=== PATIENT | male | born 1990 | race Caucasian/White ===

== ENCOUNTER → 2018-02-18 10:08 | Outpatient (CLI) | payer SELFPAY | PROVIDERS: Family Provider Family Medicine; PCP Family Medicine; Visit Provider Family Medicine | DX: L02.214 Cutaneous abscess of groin (principal) | CPT/HCPCS: 87070; 87077; 87186; 87205 ==

== ENCOUNTER → 2018-05-27 14:57 | Outpatient (CLI) | payer BC, SELFPAY ==
[2018-05-27 17:00] LABS: Chlamydia Trachomatis by PCR Negative (Negative); Neisserai gonorrhoeae by PCR Negative (Negative); Probe Check PASS; Sample Adequacy Control PASS; Specimen Processing Control PASS
== END ==
PROVIDERS: Family Provider Family Medicine; PCP Family Medicine; Referring Provider Family Medicine; Visit Provider Family Medicine
DX: R35.0 Frequency of micturition (principal)
CPT/HCPCS: 87086; 87088; 87491; 87591

== ENCOUNTER → 2018-11-12 | Outpatient (CLI) | payer SELFPAY ==
[2017-02-03 21:41] VITALS: BMI 40.4
[2018-11-12 12:33] LABS: Hemoglobin A1c 8.9 % (4.2-6.3)
[2018-11-12 12:59] LABS: ALB/GLOB Ratio 1.2 RATIO (0.9-2.4); AST(SGOT) 23 U/L (15-37); Alanine Aminotransfer ALT/SGPT 55 U/L (16-61); Albumin, Serum 4.1 g/dL (3.2-5.0); Alkaline Phosphatase 80 U/L (45-117); Anion Gap 6 (5-15); BUN 14 mg/dL (7-18); BUN/Creat Ratio 18.1 RATIO (10-20); Chloride 103 mmol/L (98-107); Cholesterol 177 mg/dL (200); Creatinine, Serum 0.77 mg/dL (0.70-1.30); EST Glomerular Filtration Rate 126 mL/min (>60); Est Glom Filt Rate - Afr Amer 153 mL/min (>60); Globulin 3.3 g/dL (2.2-4.2); Glucose 209 mg/dL (74-106); High Density Lipoprotein 32 mg/dL; Potassium 4.1 mmol/L (3.5-5.1); Protein, Total 7.4 g/dL (6.4-8.2); Sodium Level 135 mmol/L (136-145); Triglycerides 174 mg/dL; Very Low Density Lipoprotein 35 mg/dL (5-40)
== END | disposition home or self-care (01) ==
PROVIDERS: Family Provider Family Medicine; PCP Family Medicine; Referring Provider Family Medicine; Visit Provider Family Medicine
DX: E11.9 Type 2 diabetes mellitus without complications (principal); M25.561 Pain in right knee; G89.29 Other chronic pain
CPT/HCPCS: 36415; 80053; 80061; 83036

== ENCOUNTER → 2019-01-19 | Outpatient (CLI) | payer BC, SELFPAY ==
--- NOTE | 2019-01-19 14:23 | MRI_ITS ---
STUDY: MRI LUMBAR SPINE WITH AND WITHOUT CONTRAST REASON FOR EXAM: Male, 28 years old. Bowel incontinence and back pain TECHNIQUE: Standardized fat and water weighted pulse sequences were obtained in the sagittal and axial planes. 28 IV Dotarem was administered for the contrast portion of the examination. COMPARISON: Lumbar spine MRI 02/18/2011 FINDINGS: T12-L1: Normal endplates. Normal disc height, hydration and morphology. Normal bilateral facet joints. Normal central canal and bilateral lateral recesses. Normal bilateral intervertebral neural foramina. Normal lumbar lordosis. There is no substantial scoliosis. Normal conus medullaris that terminates at the L1 level. L1-2: Normal endplates. Normal disc height, hydration and morphology. Normal bilateral facet joints. Normal central canal and bilateral lateral recesses. Normal bilateral intervertebral neural foramina. L2-3: Normal endplates. Normal disc height, hydration and morphology. Normal bilateral facet joints. Normal central canal and bilateral lateral recesses. Normal bilateral intervertebral neural foramina. L3-4: Normal endplates. Normal disc height, hydration and morphology. Normal bilateral facet joints. Normal central canal and bilateral lateral recesses. Normal bilateral intervertebral neural foramina. L4-5: Normal endplates. Normal disc height, hydration and morphology. Normal bilateral facet joints. Normal central canal and bilateral lateral recesses. Normal bilateral intervertebral neural foramina. L5-S1: Normal endplates. Normal disc height, hydration and morphology. Normal bilateral facet joints. Normal central canal and bilateral lateral recesses. Normal bilateral intervertebral neural foramina. Normal visualized sacral ala. Normal visualized paraspinous soft tissue structures. MRI/Spine Lumbar W/WO Contrast IMPRESSION: Normal enhanced and unenhanced MR examination of the lumbar spine. Electronically Signed: Mery Fischer, at 16:37 EDT Tel , Service support ,
== END | disposition home or self-care (01) ==
LOC: MRI 14:05
PROVIDERS: Family Provider Family Medicine; PCP Family Medicine; Referring Provider Family Medicine; Visit Provider Family Medicine
DX: R32 Unspecified urinary incontinence (principal)
CPT/HCPCS: 72158; A9575

== ENCOUNTER 2019-02-22 18:00 | Outpatient (RCR) | payer BC, SELFPAY ==
--- NOTE | 2019-01-18 14:13 | HP.PTEVAL_ITS ---
Patient's Visit Information ZEKE VALDEZ is a 28 year old M referred to Physical Therapy by Wali Mendiola MD with a diagnosis of L groin pain and B knee tendonitis. Date of Evaluation: 01/11/19 Physical Therapist: Antonio Pimentel DPT - Visit Plan Frequency: 2x /Week Duration: 4-6 Weeks Plan: Start with quad stretching, hip flexor stretching, US to L hip flexor and/or B patellar tendons, Add in DFM to B patellar tendons. I talked with him about reducing work activities allowing for increased recovery. He reports he has a hard time slowing down. I would like him to follow up with physician about the conserns of high levels of abdomenal pain and changes in B/B periodically. Pt. consents. I will plan to see if as above. - Subjective Findings: Pt. is here today for his initial evaluation with diagnosis with L ayala in strain, and B patellar tendonitis. 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 He reports feeling better when he was taking some medications, but is now notcing that his symptoms are returning. Pt. denies N/T, but does report from a previous back injruy that ~3 times per month he loses control and B/B It cant tell when I need to go, I just can not controll it. Pt. reports this has been happening for years, ~3 times per month, and stays for a couple of days. Pt. now is having icnreased abdominal pain and L groin pain. Pt. reports having increased pain with all daily activities, including getting out of bed, lifting his leg and lifting any wt. Pt. reports his biggest complaint is pressure in his testicles, he is very conserned with this, which has been unchanging. Pt. also has B knee pain (anteriorly). Pt. has been wearing braces, hinged braces for support at work. Pt. reports increased B knee pain with squating, stairs and walking. He reports no pain at rest. Pt. is hopeful to reduce his ymptoms in order to get back to all recreational and work activities without limitations. - Pain L groin Pain Intensity (Out of 10): 4 Pain Intensity Range: 2, 6 B sides of abdomen Pain Intensity (Out of 10): 5 Pain Intensity Range: 3, 8 R knee Pain Intensity (Out of 10): 2 Pain Intensity Range: 1, 4 L knee Pain Intensity (Out of 10): 2 Pain Intensity Range: 1, 4 - Objective POSTURE: Pt. is over wt. Pt. has general flexed posture. Pt. has anterior pelvic tilt and with wt. shift to R side. PALPATION: Pt. has high levels of pain with palpation throughout bilateral aspects of abdomen, B psoas muscle groups L worse than R. Pt. has pain throughout L quad as well. Pt. also has pain with palpation f B patellar tendons. NEURO: normal throughout, normal DTR, normal senation. ROM: lumbar spine: flexion min loss NE, ext min loss increase NW abdoment and L groin. L hip- flexion 108deg increase in pain, abd 45deg NE, ext 10deg increase NW, ER/IR normal ROM, but has increased pain with both movements. MMT: RLE- 5/5 throughout with icnreased pain with hip abd and knee ext. LLE- ankle 5/5 throughout; knee- ext 5-/5 increase NW, flexion 5/5; hip- flexion 4/5 increase NW, abd 4/5 increase NW, extension 5/5 NE. Core strength- poor. GAIT: Pt. has normal gait pattern with slight increase in lateral sway, decreased hip extension noted. STAIRS: antalgic with descending, use of BHR. - Special Tests L Hip Scour: Negative L Hip PRATIK - Intraarticular Pathology: Positive L Hip FADDIR - Labrum: Positive Comment: Pt. had + FADDIR and PRATIK, but pain only - Goals Goal 1:: Pt. to be I with HEP. Goal Time Frame: 4-6 Weeks Goal 2:: Pt. to sleep throughout the night without increase in symptoms. Goal Time Frame: 4-6 Weeks Goal 3:: Pt. to have full L hip ROM withuot increase in symptoms. Goal Time Frame: 4-6 Weeks Goal 4:: Pt. to resume all work activities withotu increase in symptoms. Goal Time Frame: 4-6 Weeks Goal 5:: Pt. to report no abdominal or groin pain with all ADLs. Goal Time Frame: 4-6 Weeks Goal 6:: Pt. to complete all work and ADLs with 0-2/10 pain in B knees. - Rehabilitation Potential Physical Therapy Diagnosis: Pt. has signs and symptoms consistentw ith L groin pain and B knee tendonitis. What conserns me with this patient is the reports of frequent loss of control of B/B months (~3 times per month), and his high levels of abdomen and testicle pain. I advisedhim to follow up with his physician about these conserns, patient consents. Rehabilitation Potential: Good - Anticipated Interventions Patient/Client Instruction: Educate patient on: Condition, Plan of Care, Risk Factors, Benefits of Fitness Program For the Purpose of:: To improve decision making, To facilitate caregiver k nowledge, To improve self management, To prevent re-injury, To improve ability to perform tasks related to life management Therapeutic Exercise to Include: Strength training, Power training, Endurance training, Balance training, Postural training, Flexibilty training, Gait and locomotor training, Passive ROM, Active ROM, Dynamic Lumbar Stabilization For the Purpose of:: To decrease pain, To decrease swelling/inflammation, To increase ROM, To improve nutrient delivery to tissue, To increase oxygenation perfusion, To improve gait and locomotor functions, To improve health of tissue, To decrease soft tissue restriction, To increase flexibility/ROM IF ES: Yes Thermo therapy (hot pack): Yes Ultrasound (thermal/non thermal): Yes For the Purpose of:: To decrease pain, To decrease swelling/inflammation, To increase ROM, To improve nutrient delivery to tissue, To increase oxygenation perfusion Thank you for the opportunity to evaluate your patient. For Medicare and Medicare HMO plans, please review the plan of care and approve it. It will need to be FAXED BACK to us at [phone] for Medicare purposes. For Medicare only, by signing this I certify the plan of care. Please let me know if there are questions or concerns regarding this plan of care. Physician Signature: Date:
--- NOTE | 2019-03-22 10:00 | HP.PT.NRP ---
HP - Discharge Summary (1) - Patient Information ZEKE VALDEZ was seen in my office for initial evaluation on 01/11/19. The following Plan of Care was established for this patient: Initial Frequency: 2x /Week Initial Duration: 4-6 Weeks - Anticipated Interventions Patient/Client Instruction: Educate patient on: Condition, Plan of Care, Risk Factors, Benefits of Fitness Program For the Purpose of:: To improve decision making, To facilitate caregiver knowledge, To improve self management, To prevent re-injury, To improve ability to perform tasks related to life management Therapeutic Exercise to Include: Strength training, Power training, Endurance training, Balance training, Postural training, Flexibilty training, Gait and locomotor training, Passive ROM, Active ROM, Dynamic Lumbar Stabilization For the Purpose of:: To decrease pain, To decrease swelling/inflammation, To increase ROM, To improve nutrient delivery to tissue, To increase oxygenation perfusion, To improve gait and locomotor functions, To improve health of tissue, To decrease soft tissue restriction, To increase flexibility/ROM IF ES: Yes Thermo therapy (hot pack): Yes Ultrasound (thermal/non thermal): Yes For the Purpose of:: To decrease pain, To decrease swelling/inflammation, To increase ROM, To improve nutrient delivery to tissue, To increase oxygenation perfusion This patient was last seen in our office 02/22/19. Pertinent comments regarding their Physical therapy will appear below: Pt. was seen in B for his B patellar pain and groin pain. Pt. was progressing well, but limited due to work activities. Pt. did not show up for his last few appointments and will be DC from PT at this point in time. At this point I will be discontinuing this patient from physical therapy. I would be happy to see this patient again in the future if found appropriate by the physician. Thank you! Antonio Pimentel, JALENT
== END 2019-02-22 19:00 | disposition home or self-care (01) ==
LOC: PT 18:00
PROVIDERS: Family Provider Family Medicine; PCP Family Medicine; Referring Provider Family Medicine; Visit Provider Family Medicine
DX: S76.212D Strain of adductor muscle, fascia and tendon of left thigh, subsequent encounter (principal); M76.51 Patellar tendinitis, right knee; M54.5 Low back pain; G89.29 Other chronic pain
CPT/HCPCS: 97035; 97110; 97161

== ENCOUNTER → 2019-06-11 12:13 | Outpatient (CLI) | payer BC, SELFPAY ==
[2017-02-03 21:41] VITALS: BMI 40.4
--- NOTE | 2019-06-11 12:17 | RAD_ITS ---
STUDY: X-RAY - ABDOMEN/PELVIS REASON FOR EXAM: Male, 29 years old. Diarrhea TECHNIQUE: Single AP view of the abdomen / pelvis. COMPARISON: None. FINDINGS: There is a moderate amount of colonic fecal material. There are nonspecific gaseous bowel loops. The visualized liver, spleen and kidneys are grossly normal in size. Normal soft tissue structures. Normal visualized osseous structures. RAD/Abdomen Single View IMPRESSION: Nonspecific gas pattern. Electronically Signed: Magnus Corbett MD at 14:11 EST Tel , Service support ,
[2019-06-11 14:17] LABS: Absolute Lymphocyte Count 3.74 X10^3/uL (0.83-4.51); Absolute Neutrophil Count 6.9 X10^3/uL (2.0-7.7); Basophil# 0.09 X10^3/uL; Basophil% 0.7 % (0-1); Eosinophil# 0.56 X10^3/uL; Eosinophils% 4.7 % (0-5); Hematocrit 50.5 % (40-54); Lymphocyte # 3.74 X10^3/ul (4.0); Lymphocyte % 31.1 % (19-41); Mean Corp Hgb Conc 33.7 g/dL (32-36); Mean Corpuscular Hgb 29.2 pg (27.0-32.0); Mean Corpuscular Volume 86.8 fL (80-94); Mean Platelet Vol. 11.8 fl (6.2-12.0); Monocyte# 0.46 X10^3/uL; Monocyte% 3.8 % (0-10); NRBC Flagged by Analyzer 0 % (0-5); Neutrophil % 57.4 % (47-70); Platelet Count 224 K/mm3 (150-450); RBC Distribution Width CV 13.2 % (11.6-14.6); RBC Distribution Width SD 40.7 fl (35.1-43.9); Red Blood Count 5.82 M/mm3 (4.6-6.2)
[2019-06-11 14:40] LABS: ALB/GLOB Ratio 1.1 RATIO (0.9-2.4); AST(SGOT) 20 U/L (15-37); Alanine Aminotransfer ALT/SGPT 61 U/L (16-61); Albumin, Serum 3.9 g/dL (3.2-5.0); Alkaline Phosphatase 126 U/L (45-117); Anion Gap 5 (5-15); BUN 9 mg/dL (7-18); BUN/Creat Ratio 11.2 RATIO (10-20); Calcium,Total 8.8 mg/dL (8.5-10.1); Chloride 105 mmol/L (98-107); EST Glomerular Filtration Rate 120 mL/min (>60); Est Glom Filt Rate - Afr Amer 145 mL/min (>60); Globulin 3.6 g/dL (2.2-4.2); Glucose 305 mg/dL (74-106); Protein, Total 7.5 g/dL (6.4-8.2); Sodium Level 136 mmol/L (136-145); Thyroid Stim Hormone (TSH) 1.33 uIU/mL (0.358-3.74)
[2019-06-11 14:47] LABS: Hemoglobin A1c 10.5 % (4.2-6.3)
== END ==
PROVIDERS: Family Provider Family Medicine; PCP Family Medicine; Referring Provider Family Medicine; Visit Provider Family Medicine
DX: R19.7 Diarrhea, unspecified (principal); E11.9 Type 2 diabetes mellitus without complications
CPT/HCPCS: 36415; 74018; 80053; 83036; 84443; 85025

== ENCOUNTER → 2019-07-02 10:38 | Outpatient (CLI) | payer BC, SELFPAY ==
[2017-02-03 21:41] VITALS: BMI 40.4
[2019-07-02 12:31] LABS: Absolute Lymphocyte Count 2.92 X10^3/uL (0.83-4.51); Absolute Neutrophil Count 7.3 X10^3/uL (2.0-7.7); Basophil% 0.9 % (0-1); Eosinophil# 0.52 X10^3/uL; Eosinophils% 4.5 % (0-5); Hematocrit 51.3 % (40-54); Hemoglobin 17.6 g/dL (13.0-16.5); Lymphocyte # 2.92 X10^3/ul (4.0); Lymphocyte % 25.3 % (19-41); Mean Corp Hgb Conc 34.3 g/dL (32-36); Mean Corpuscular Hgb 30.1 pg (27.0-32.0); Mean Corpuscular Volume 87.7 fL (80-94); Mean Platelet Vol. 11.8 fl (6.2-12.0); Monocyte# 0.53 X10^3/uL; Monocyte% 4.6 % (0-10); NRBC Flagged by Analyzer 0 % (0-5); Neutrophil # 7.26 X10^3/uL (2.7-7.7); Neutrophil % 63.1 % (47-70); Platelet Count 188 K/mm3 (150-450); RBC Distribution Width CV 13.1 % (11.6-14.6); RBC Distribution Width SD 41.8 fl (35.1-43.9); Red Blood Count 5.85 M/mm3 (4.6-6.2); White Blood Count 11.5 K/mm3 (4.4-11.0)
[2019-07-02 13:35] LABS: ALB/GLOB Ratio 1.1 RATIO (0.9-2.4); AST(SGOT) 29 U/L (15-37); Alkaline Phosphatase 118 U/L (45-117); Anion Gap 8 (5-15); BUN 12 mg/dL (7-18); BUN/Creat Ratio 14.3 RATIO (10-20); Calcium,Total 8.7 mg/dL (8.5-10.1); Chloride 102 mmol/L (98-107); Creatinine, Serum 0.84 mg/dL (0.70-1.30); EST Glomerular Filtration Rate 114 mL/min (>60); Est Glom Filt Rate - Afr Amer 138 mL/min (>60); Globulin 3.7 g/dL (2.2-4.2); Glucose 348 mg/dL (74-106); Potassium 4.1 mmol/L (3.5-5.1); Protein, Total 7.7 g/dL (6.4-8.2); Sodium Level 133 mmol/L (136-145); Thyroid Stim Hormone (TSH) 1.31 uIU/mL (0.358-3.74)
[2019-07-02 13:37] LABS: Alanine Aminotransfer ALT/SGPT 77 U/L (16-61)
== END ==
PROVIDERS: PCP Family Medicine; Referring Provider Family Medicine; Visit Provider Family Medicine
DX: F33.2 Major depressive disorder, recurrent severe without psychotic features (principal)
CPT/HCPCS: 36415; 80053; 84443; 85025

== ENCOUNTER → 2020-01-03 | Outpatient (CLI) | payer BC, SELFPAY ==
[2017-02-03 21:41] VITALS: BMI 40.4
== END | disposition home or self-care (01) ==
LOC: LABSPEC 01-04 16:24
PROVIDERS: PCP Family Medicine; Referring Provider Family Medicine; Visit Provider Family Medicine
DX: L02.211 Cutaneous abscess of abdominal wall (principal)
CPT/HCPCS: 87070; 87077; 87186; 87205

== ENCOUNTER → 2020-08-07 11:46 | Outpatient (CLI) | payer BC, SELFPAY ==
[2017-02-03 21:41] VITALS: BMI 40.4
--- NOTE | 2020-08-07 11:49 | RAD_ITS ---
STUDY: X-RAY - RIGHT WRIST REASON FOR EXAM: Right wrist pain, injury 4 days ago. TECHNIQUE: 3 view(s) of the wrist were obtained. COMPARISON: Radiographs 04/02/2014. FINDINGS: Normal visualized distal radius and ulna. Normal radiocarpal articulation. Normal distal radioulnar articulation. Normal carpal bones. Normal carpal articulations. Normal carpometacarpal articulation of the thumb. Normal second through fifth carpometacarpal articulations. Normal visualized metacarpal bones. The soft tissue structures are unremarkable. RAD/Wrist min 3 Views IMPRESSION: Normal x-ray examination of the right wrist. Electronically Signed: Alessandro Hernandez MD at 12:08 EST Tel , Service support ,
== END ==
PROVIDERS: PCP Family Medicine; Referring Provider Family Medicine; Visit Provider Family Medicine
DX: S69.91XA Unspecified injury of right wrist, hand and finger(s), initial encounter (principal)
CPT/HCPCS: 73110

== ENCOUNTER → 2020-10-11 11:54 | Outpatient (CLI) | payer BC, SELFPAY ==
[2017-02-03 21:41] VITALS: BMI 40.4
--- NOTE | 2020-10-11 11:58 | RAD_ITS ---
STUDY: X-RAY - LUMBAR SPINE REASON FOR EXAM: Male, 30 years old. BACKACHE TECHNIQUE: 5 view(s) of the lumbar spine were obtained. COMPARISON: MRI 01/19/2019 FINDINGS: Normal lumbar lordosis. There is no substantial scoliosis. There is a normal alignment of the vertebrae. Normal vertebral bodies and endplates. Normal disc space heights. There is no demonstrated fracture. The soft tissue structures are unremarkable. RAD/L/S Spine Min 4 Views IMPRESSION: Normal x-ray examination of the lumbar spine. Electronically Signed: Ventura Carmona MD at 12:36 EDT , Service support ,
== END ==
LOC: MTRAD 11:56
PROVIDERS: PCP Family Medicine; Referring Provider Family Medicine; Visit Provider Family Medicine
DX: M54.9 Dorsalgia, unspecified (principal)
CPT/HCPCS: 72110